=== PATIENT | female | born 1975 | race Caucasian/White ===

== ENCOUNTER 2021-06-18 18:24 | Emergency (ER) | payer MEDICAID, OTHER ==
[~2021-06-18] VITALS: Ht 167.6 cm; Wt 59.0 kg
[2021-06-18] MEDS ORDERED: HYDROmorphone HCL 2 MG/ML VL IV ONE ×2 (19:15→20:30)
[2021-06-18] MEDS ORDERED: ONDANSETRON HCL 4 MG/2 ML VIAL IV ONE (19:15)
[2021-06-18] MEDS ORDERED: SODIUM CHLORIDE 0.9% 1,000 ML IV ONE (19:45)
[2021-06-18] MEDS ORDERED: LORazepam 2MG/ML-1ML VIAL IM ONE ×2 (21:00→23:45)
[2021-06-18 21:32] LABS: Basophils # (auto) 0 10 ^3/uL (0-0.2); Basophils % (auto) 0.3 % (0.0-2.0); Eosinophils # (auto) 0 10 ^3/uL (0-0.8); Hematocrit 31.9 % (36.0-46.0); Hemoglobin 10.7 g/dL (12.2-16.2); Lymphocytes # (auto) 1.2 10 ^3/uL (0.4-5.4); Mean Corpuscular Hemoglobin 29.5 pg (28.0-32.0); Mean Corpuscular Hgb Conc. 33.4 g/dL (32.0-36.0); Mean Corpuscular Volume 88.3 fL (80.0-100.0); Monocytes # (auto) 0.9 10 ^3/uL (0-1.3); Monocytes % (auto) 6.9 % (0.0-12.0); Neutrophils # (auto) 10.2 10 ^3/uL (1.6-8.6); Neutrophils % (auto) 82.8 % (37.0-80.0); Nucleated Red Blood Cells % 0.1 %; Red Blood Cells 3.61 10^6/uL (4.0-5.20); Red Cell Distribution Width 13.9 % (11.8-14.3); White Blood Cell 12.4 10^3/uL (4.4-10.8)
[2021-06-18 21:48] LABS: Urine Bacteria FEW /hpf (None Seen); Urine Blood 3+ /uL (Negative); Urine Mucus FEW (None Seen); Urine Specific Gravity 1.025 (1.001-1.035); Urine WBC 15 /hpf (0 - 5)
[2021-06-18 21:51] LABS: Albumin 3.3 g/dL (3.4-5.0); Calcium 8.3 mg/dL (8.5-10.1)
[2021-06-18 21:55] LABS: BUN/Creatinine Ratio 22.6; Bilirubin, Total 1.4 mg/dL (0.2-1.0); Total Protein 6.7 g/dL (6.4-8.2)
[2021-06-18 22:46] LABS: Amphetamine Screen, Urine POSITIVE (NEGATIVE); Barbiturate Scree,Urine NEGATIVE (NEGATIVE); Benzodiazephine Screen, Urine NEGATIVE (NEGATIVE); Cannabinoid Screen, Urine POSITIVE (NEGATIVE); Cocaine Screen, Urine NEGATIVE (NEGATIVE); Opiate Scree,Urine NEGATIVE (NEGATIVE); Phencyclidine Screen, Urine NEGATIVE (NEGATIVE)
[2021-06-18 22:56] LABS: INR 1.13 (0.9-1.15); Partial Thromboplastin Time 27.2 sec (23.6-33.0)
[2021-06-19 00:11] VITALS: BP 156/58
[2021-06-19] MEDS ORDERED: HYDROmorphone HCL 2 MG/ML VL IV ONE (00:30)
== END 2021-06-19 00:36 | disposition short-term general hospital (02) ==
LOC: EDBD 18:24 → ER 18:28
DX: S32.10XA Unspecified fracture of sacrum, initial encounter for closed fracture (principal); Z20.822 Contact with and (suspected) exposure to COVID-19; W18.39XA Other fall on same level, initial encounter; Y93.89 Activity, other specified; Y92.89 Other specified places as the place of occurrence of the external cause; Y99.8 Other external cause status
CPT/HCPCS: 36415; 71250; 72131; 74176; 80053; 80307; 81001; 81025; 85025; 85610; 85730; 86850; 86900; 86901; 87426; 96361; 96372; 96374; 96375; 96376; 99285; J1170; J2060; J2405; J7030

== ENCOUNTER 2021-11-27 21:50 | Emergency (ER) | payer MEDICAID ==
[~2021-11-27] VITALS: Ht 167.6 cm; Wt 140.0 kg
[2021-11-27 22:11] VITALS: BP 129/88
[2021-11-28] MEDS ORDERED: HYDROcodone-ACET 10/325MG TAB PO ONE (02:15)
[2021-11-28] MEDS ORDERED: HYDR-4798 PO (02:24)
== END 2021-11-28 02:57 | disposition home or self-care (01) ==
LOC: ER 21:50 → EDBD 21:50 → ER 11-28 02:56
DX: S90.31XA Contusion of right foot, initial encounter (principal); V29.9XXA Motorcycle rider (driver) (passenger) injured in unspecified traffic accident, initial encounter; Y93.89 Activity, other specified; Y92.89 Other specified places as the place of occurrence of the external cause; Y99.8 Other external cause status
CPT/HCPCS: 73630

== ENCOUNTER 2021-11-29 02:20 | Emergency (ER) | payer MEDICAID ==
[~2021-11-29] VITALS: Ht 170.2 cm; Wt 61.0 kg
[~2021-11-29 02:20] MED LIST: HYDR-4798 PO
[2021-11-29 03:00] VITALS: BP 102/61
== END 2021-11-29 05:16 | disposition left against medical advice (07) ==
LOC: ER 02:20
DX: R10.2 Pelvic and perineal pain (principal); Z53.21 Procedure and treatment not carried out due to patient leaving prior to being seen by health care provider